=== PATIENT | male | born 1995 | race Hispanic/Latino ===

== ENCOUNTER 2021-01-31 19:28 | Emergency (ER) | payer OTHER ==
[2021-01-31] MEDS ORDERED: LIDOCAINE HCL 1% 20 ML VIAL ONE (19:53)
[2021-01-31] MEDS ORDERED: TETANUS/DIPHTHERIA TOXOID [ADULT] 0.5 ML VIAL IM ONE (19:54)
[2021-01-31] MEDS ORDERED: CEFAZOLIN SODIUM 1 GM VIAL ONE (20:39)
[2021-01-31] MEDS ORDERED: SODIUM CHLORIDE 0.9% 50 ML IV ONE (20:40)
[2021-01-31] MEDS ORDERED: ONDANSETRON HCL 4 MG/2 ML VIAL ONE (21:16)
[2021-01-31] MEDS ORDERED: MORPHINE SULFATE 4 MG/1ML SYG ONE (21:16)
[2021-01-31 21:30] LABS: BASOPHILS % (AUTO) 0.1 % (0.0-5.0); EOSINOPHILS % (AUTO) 0.1 % (0.0-8.0); HEMATOCRIT 39.7 % (42-54); LYMPHOCYTES % (AUTO) 19.8 % (21.0-51.0); MEAN CORPUSCULAR HEMOGLOBIN 29.3 pg (27.0-33.0); MEAN CORPUSCULAR VOLUME 86.3 fL (79-99); MONOCYTES % (AUTO) 8.5 % (3.0-13.0); NEUTROPHILS % (AUTO) 71.3 % (40.0-77.0); PLATELET COUNT (AUTO) 176 K/uL (130-400); RED CELL DISTRIBUTION WIDTH 12.8 % (11.0-15.5)
[2021-01-31] MEDS ORDERED: OCTYL 2-CYANOACRYLATE 1 EACH TP ONE (21:34)
[2021-01-31 21:40] LABS: CREATININE 0.9 mg/dL (0.5-1.5); POTASSIUM 3.3 mmol/L (3.5-5.1)
[2021-01-31 21:42] LABS: INR 1.05 (0.85-1.15); PROTHROMBIN TIME 11.4 SEC (9.6-11.6)
[2021-01-31 21:43] LABS: PARTIAL THROMBOPLASTIN TIME 27.8 SEC (26.3-35.5)
[2021-01-31 21:45] LABS: ALBUMIN 3.5 g/dL (3.5-5.0); BILIRUBIN,TOTAL 0.2 mg/dL (0.2-1.0); TOTAL PROTEIN, SERUM 7.1 g/dL (6.0-8.3)
[2021-01-31] MEDS ORDERED: ONDANSETRON HCL 4 MG/2 ML VIAL IV PRN (22:30)
[2021-01-31] MEDS ORDERED: ACETAMINOPHEN-CODEINE 300/30MG TAB PO PRN ×2 (22:30)
[2021-01-31] MEDS ORDERED: CEFAZOLIN SODIUM 1 GM VIAL IVP SCH (22:30)
[2021-01-31] MEDS ORDERED: ACETAMINOPHEN 325 MG TAB PO PRN ×2 (22:30)
[2021-02-01] MEDS ORDERED: FAMOTIDINE/PF 20 MG/2 ML VIAL IV SCH (09:00)
== END 2021-01-31 22:49 | disposition home or self-care (01) ==
LOC: EDH 19:28 → UNDOADMIN 19:29 → EDHIP 19:29 → EDH 22:49
DX: S61.214A Laceration without foreign body of right ring finger without damage to nail, initial encounter (principal); S61.216A Laceration without foreign body of right little finger without damage to nail, initial encounter; W26.0XXA Contact with knife, initial encounter; Y93.G3 Activity, cooking and baking; Y92.098 Other place in other non-institutional residence as the place of occurrence of the external cause; Y99.8 Other external cause status
CPT/HCPCS: 12002; 36415; 73130; 80053; 85025; 85610; 85730; 90471; 90714; 96365; 96366; 99284; J0690; J2270; J2405; 12001

== ENCOUNTER 2021-02-15 10:44 | Emergency (ER) | payer SELFPAY | END 2021-02-15 13:03 | disposition home or self-care (01) | LOC: EDH 10:44 | DX: S61.216D Laceration without foreign body of right little finger without damage to nail, subsequent encounter (principal); Z72.0 Tobacco use; X58.XXXD Exposure to other specified factors, subsequent encounter | CPT/HCPCS: 99281 ==